=== PATIENT | female | born 1985 | race Caucasian/White ===

== ENCOUNTER 2017-03-26 09:50 | Emergency (ER) | payer OTHER | END 2017-03-26 13:10 | disposition home or self-care (01) | LOC: ER1 09:50 | DX: S00.83XA Contusion of other part of head, initial encounter (principal); F17.210 Nicotine dependence, cigarettes, uncomplicated; Z98.51 Tubal ligation status; W22.8XXA Striking against or struck by other objects, initial encounter | CPT/HCPCS: 70480; 99283 ==